=== PATIENT | female | born 1950 ===

== ENCOUNTER 2022-09-14 13:02 | Inpatient (IN) | payer MEDICARE, OTHER ==
[~2022-09-14] VITALS: Ht 160 cm; Wt 86.6 kg
--- NOTE | 2022-09-14 15:21 | NUR ---
SALAZAR NEWMAN CALLED AT 1515 AND NOTIFIED OF PT ARRIVAL
[2022-09-14] MEDS ORDERED: METTREX2.5 PO (15:29)
[2022-09-14] MEDS ORDERED: Coumadin2 MG PO (15:31)
[2022-09-14] MEDS ORDERED: HYDSUL200 PO (15:32)
[2022-09-14] MEDS ORDERED: PREDNISONE PO (15:33)
[2022-09-14] MEDS ORDERED: MYCO250 PO (15:34)
[2022-09-14] MEDS ORDERED: CYCL10 PO (15:35)
[2022-09-14] MEDS ORDERED: TRAM50 PO (15:35)
[2022-09-14] MEDS ORDERED: GABA300 PO ×2 (15:36)
[2022-09-14] MEDS ORDERED: CEPH500 PO (15:37)
[2022-09-14] MEDS ORDERED: WARF2.5 PO (15:38)
--- NOTE | 2022-09-14 16:15 | NUR ---
Pt resting in bed and is significantly somnolant. Pt non verbal and appears painful with repositioning as evidenced by moaning. Spoke with admitting provider Milton, Primary RN Jyoti and discussed case. Called and spoke with Pt's sister in law Liza. Provided update and engaged in therapeutic discussion regarding Pt's code status wishes. Liza reports Pt's wishes are DNR. Liza reports being to Pt's brother who 6 months ago. Pt does not have any other sibblings, or children, or living parents. Liza reports Pt lives with her and Liza's daughter. Placed order for DNR per V/O from hospitalist Milton. Palliative Care will remain available.
[2022-09-14 16:55] LABS: PCO2 Arterial 22.6 mmHg (35-45); PO2 Arterial 95.2 mmHg (80-100)
[2022-09-14 17:07] LABS: Hematocrit 27.4 % (33.0-51.0); Hemoglobin 8.8 g/dL (11.5-16.0); Mean Corpuscular HGB 30.2 pg (26.0-34.0); Mean Corpuscular HGB Conc 32.1 g/dL (31.5-36.5); Mean Corpuscular Volume 94 fL (80-100); Mean Platelet Volume 11.3 fL (9.1-12.4); NRBC ABSOLUTE 0.06 K/mm3 (0.00-0.02); NRBC Auto 0.5 /100 WBC (0.0-0.2); Platelet Count 100 K/mm3 (150-400); RDW Coefficient Variation 16.7 % (11.7-14.2); RDW Standard Deviation 57.6 fL (35.1-46.3); Red Blood Cell Count 2.91 M/mm3 (3.80-5.20); White Blood Cell Count 12.12 K/mm3 (4.00-11.30)
[2022-09-14 17:22] LABS: International Normalized Ratio 3.83; Prothrombin Time Results 36.8 Sec (9.7-11.5)
[2022-09-14 17:38] LABS: CPK Creatine Kinase 231 U/L (26-193); Magnesium, Blood 1.9 mg/dL (1.6-2.4)
[2022-09-14 17:47] LABS: Alanine Aminotransfer (ALT/SGP 56 U/L (12-78); Albumin, Blood 1.4 g/dL (3.4-5.0); Albumin/Globulin Ratio 0.4 (0.8-1.8); Alk Phos 182 U/L (50-136); Anion Gap 13 mmol/L (6-16); Aspartate Aminotrans (AST/SGOT 130 U/L (12-37); Bilirubin, Total 0.8 mg/dL (0.1-1.0); Blood Urea Nitrogen 71 mg/dL (8-24); Bun/Creatinine Ratio 51.1 (12.0-20.0); CO2, Blood 13 mmol/L (21-32); Calcium, Blood 6.3 mg/dL (8.5-10.1); Chloride, Blood 114 mmol/L (98-108); Creatinine, Blood 1.39 mg/dL (0.40-1.00); Globulin, Blood 3.8 g/dL (2.2-4.0); Glomerular Filtration Rate 41 (60-); Glucose, Blood 92 mg/dL (70-99); Potassium, Blood 5.2 mmol/L (3.5-5.5); Sodium, Blood 140 mmol/L (136-145); Total Protein, Blood 5.2 g/dL (6.4-8.2)
[2022-09-14 17:49] LABS: C-Reactive Protein, High Sens. >190.000 mg/L (0.000-3.000)
[2022-09-14 17:57] LABS: BAND PERCENT MAN 49 % (0-8); BASOPHILS PERCENT MAN 0 % (0-2); EOSINOPHILS PERCENT MAN 0 % (0-6); LYMPHOCYTES ABSOLUTE MAN 1.09 K/mm3 (0.84-5.20); LYMPHOCYTES PERCENT MAN 9 % (21-46); MONOCYTES PERCENT MAN 0 % (4-13); MYELOCYTE ABSOLUTE MAN 0.24 K/mm3 (0.00-0.00); MYELOCYTE PERCENT MAN 2 % (0-0); NEUTROPHILS ABSOLUTE MAN 10.78 K/mm3 (1.96-9.15); SEG NEUTROPHILS PERCENT MAN 40 % (41-73); TOTAL CELLS COUNTED 100
[2022-09-14 18:10] LABS: Source, Urine Foley catheter
[2022-09-14 18:13] LABS: Appearance, Urine Cloudy (Clear); Blood, Urine 4+ (Neg); Color, Urine Yellow (P-Yellow); Glucose Qualitative, Urine Neg (Neg); Ketones, Urine 1+ (Neg); Leukocyte Esterase, Urine 1+ (Neg); Nitrite, Urine Neg (Neg); Protein, Urine 2+ (Neg); Urobilinogen, Urine NORM (Normal)
[2022-09-14 18:35] LABS: Bilirubin, Urine 2+ (Neg)
[2022-09-14 18:37] LABS: Yeast/Fungi Urine Few /hpf
[2022-09-14 18:38] LABS: Red Blood Cells, Urine 50-100 /hpf (0-2); Squamous Epithelial Cells Few /hpf (Few)
[2022-09-14 18:39] LABS: Amorphous Light (0-Heavy); Transitional Epithelial Cells Few /hpf (0-Rare)
[2022-09-14 18:40] LABS: Bacteria Mod /hpf
--- NOTE | 2022-09-14 19:25 | NUR ---
PT ARRIVED AT 1500 VIA EMS FROM [place]. NEURO: SOMNOLENT, MOANS AT TIMES. WILL OPEN EYES TO VOICE AND SAY "WHAT" BUT DOES NOT VERBALIZE FURTHER. PT IS REPORTEDLY A/O AT BASELINE. CARDIAC: SR 80-90'S. SBP 90'S-130'S. LEVOPHED TITRATED DOWN FROM 10 TO 4. VASOPRESSIN INFUSING AT 0.04. EKG AND ECHO DONE. RESP: ROOM AIR UPON ARRIVAL, O2 SAT 99%. LUNGS CLEAR WITH DIMINISHED BASES BILATERALLY. CXR DONE. GI: NPO DUE TO ALTERED LOC. BS HYPOACTIVE, BM X1 BROWN AND WATERY. : PADILLA IN PLACE UPON ARRIVAL. D/C'D AND NEW PADILLA PLACED. UA SENT. 20ML CLEAR YELLOW URINE OUT THIS SHIFT. SKIN: SMALL HOLE/PUNCTURE SITE IN PERINEUM. MD VISUALIZED. PICTURES TAKEN OF OTHER SKIN ISSUES. BRUISING ALL OVER BODY ESPECIALLY TO BLE. SEVERAL TOES WITH ESCHAR PRESENT. COCCYX BRUISED, REDDENED WITH PRESSURE AREA PRESENT. IV: CENTRAL LINE TO RIGHT SC, INFUSING. 1/2 NS W/BICARB INFUSING AT 75ML/HR. IV ATB INFUSING. PIVX2, BOTH FLUSH WELL. PT WAS ANOINTED BY NEGRITA SMITH PER FAMILY REQUEST. DNR STATUS CONFIRMED BY MD. SISTER HAILY SPOKE TO ADMITTING PROVIDER AND PALLIATIVE CARE RN VIA PHONE. NIECE UPDATED VIA PHONE BY THIS RN. FAMILY PLANS TO VISIT IN AM, THEY REQUESTED TO BE CALLED IF ANY CHANGES IN PT CONDITION.
--- NOTE | 2022-09-14 19:30 | NUR ---
ASSUMED CARE PT IS A&O X1; VERY DIFFICULT TO ORIENT AND HAVE PT ANSWER QUESTIONS. PT WAS ABLE TO GIVE ME BIRTHDATE/LOCATION, BUT WOULD LOSE FOCUS FREQUENTLY THROUGHOUT QUESTIONING. SPO2 >92% ON RA; MAP >65 ON 4MCG OF LEVOPHED/ 0.04MCG OF VASOPRESSIN. PT HAS A CPOT OF 8.
[2022-09-14 22:41] LABS: Bun/Creatinine Ratio 52.9 (12.0-20.0); Creatinine, Blood 1.36 mg/dL (0.40-1.00); Potassium, Blood 4.6 mmol/L (3.5-5.5)
[2022-09-15 04:17] LABS: Base Excess Venous -12.5 mmol/L; Bicarbonate Venous 15.4 mmol/L (24.0-30.0); PCO2 Venous 24.4 mmHg (38-42); pH Blood Venous 7.34 (7.34-7.37)
[2022-09-15 04:20] LABS: Hematocrit 22.7 % (33.0-51.0); Hemoglobin 7.5 g/dL (11.5-16.0); Mean Corpuscular Volume 91 fL (80-100); Mean Platelet Volume 11.9 fL (9.1-12.4); NRBC ABSOLUTE 0.08 K/mm3 (0.00-0.02); NRBC Auto 0.6 /100 WBC (0.0-0.2); Platelet Count 69 K/mm3 (150-400); RDW Coefficient Variation 16.6 % (11.7-14.2); RDW Standard Deviation 54.9 fL (35.1-46.3); White Blood Cell Count 13.76 K/mm3 (4.00-11.30)
[2022-09-15 04:37] LABS: Magnesium, Blood 1.9 mg/dL (1.6-2.4)
[2022-09-15 04:57] LABS: Albumin, Blood 1.2 g/dL (3.4-5.0); Albumin/Globulin Ratio 0.4 (0.8-1.8); Bilirubin, Total 0.7 mg/dL (0.1-1.0); Bun/Creatinine Ratio 57.5 (12.0-20.0); Calcium, Blood 5.9 mg/dL (8.5-10.1); Creatinine, Blood 1.27 mg/dL (0.40-1.00); Globulin, Blood 3.2 g/dL (2.2-4.0); Potassium, Blood 4.7 mmol/L (3.5-5.5); Total Protein, Blood 4.4 g/dL (6.4-8.2)
--- NOTE | 2022-09-15 05:21 | NUR ---
SHIFT SUMMARY PT IS A&O X1-2. ABLE TO STATE BIRTHDAY/LOCATION. DIFFICULT TO GET PT TO FOCUS AND LOSES FOCUS FREQUENTLY. SPO2 >92% ON RA; MAP >65 ON 4MCG OF LEVOPHED. BICARB RUNNING AT 75MLS/HR. VASOPRESSIN PUT ON SB EARLIER THIS SHIFT. PAIN CONTROL HAS BEEN DIFFICULT W/ FENTANYL MAKING MINIMAL TO NO DIFFERENCE. PT FREQUENTLY WILL MOAN/CRY OUT AND IS RESTLESS. PADILLA PATENT AND DRAINING TO GRAVITY. NO ACUTE CHANGES SINCE THIS AM BESIDES WHAT'S MENTIONED IN THIS NOTE.
--- NOTE | 2022-09-15 05:28 | NUR ---
SHIFT SUMMARY PT IS A&O X1; DOES NOT KNOW WHERE HE IS AT WHEN ASKED T/O NIGHT. ATIVAN TO MANAGE CIWA T/O NIGHT. NO ACUTE CHANGES SINCE ASSUMED CARE NOTE.
[2022-09-15 05:58] LABS: BAND PERCENT MAN 15 % (0-8); BASOPHILS ABSOLUTE MAN 0.96 K/mm3 (0.00-0.23); BASOPHILS PERCENT MAN 7 % (0-2); EOSINOPHILS PERCENT MAN 0 % (0-6); LYMPHOCYTES ABSOLUTE MAN 0.96 K/mm3 (0.84-5.20); LYMPHOCYTES PERCENT MAN 7 % (21-46); METAMYELOCYTE ABSOLUTE MAN 0.27 K/mm3 (0.00-0.00); METAMYELOCYTE PERCENT MAN 2 % (0-0); MONOCYTES PERCENT MAN 0 % (4-13); MYELOCYTE ABSOLUTE MAN 0.13 K/mm3 (0.00-0.00); MYELOCYTE PERCENT MAN 1 % (0-0); NEUTROPHILS ABSOLUTE MAN 11.42 K/mm3 (1.96-9.15); SEG NEUTROPHILS PERCENT MAN 68 % (41-73); TOTAL CELLS COUNTED 100
[2022-09-15 08:20] LABS: Prothrombin Time Results 59.2 Sec (9.7-11.5)
[2022-09-15 08:32] LABS: International Normalized Ratio 6.36
--- NOTE | 2022-09-15 10:28 | NUR ---
Brief supportive visit. Pt resting in bed with her eyes opened. Pt appears to be in pain as evidenced by moaning and movements of her extremities. Pt does not respond verbally to this RN. Spoke with corporation pilot Dana and discussed case. Palliative Care will remain available.
--- NOTE | 2022-09-15 13:42 | NUR ---
DR GARY VEGA AT BEDSIDE TO EVALUATE RECTAL MASS NOTED ON CT SCAN. DIGITAL DISIMPACTION DONE AND EVALUATION OF MASS. PT WITH BRIGHT RED BLOOD FROM RECTUM AFTER DISIMPACTION. PT CLEANED UP, ATTENDS PLACED. PT MED WITH FENTANYL PER EMAR. DR VEGA TO SPEAK WITH FAMILY ABOUT MASS AND PLAN OF CARE.
--- NOTE | 2022-09-15 16:45 | NUR ---
Case Conference Note Spoke with Primary SAHRA Rose and Dr Sharp. Discussed case and concerns. Family may benefit from considering comfort care. Staff has learned that Pt has 2 sisters and sister in law Liza reports not having MPOA but would still like to be Pt's decision maker. Liza is in agreement with comfort care. [place] falls to Pt's blood sibblings for decision making. Called and spoke to each sister Shanice and Jaymie with separate phone calls. Sister Shanice lives in [place] and is the oldest sibbling. Jaymie lives in [facility]. Provided update and discussed recommendations. Educated on comfort care philosophy with V/U made by both sisters. Both sisters agree that Pt's wishes at this stage in her life is to focus on comfort. Both sisters confirm Pt does not have any children or living parents. Offered therapeutic listening and answered questions. Shanice reports Jackelyn is Shanice's daughter. Discussed hospice to consider for D/C plan both are in agreement. Jaymie expresses concerns that Liza and Jackelyn can not care for Pt safely. She report Pt was caring for Liza and Jackelyn prior to hospitalization. Conversation witnessed by PC SAHRA Alonso. Placed comfort care order, comfort care order set, and D/C maintenance medications per V/O from Dr Sharp. Palliative Care will remain available.
--- NOTE | 2022-09-15 17:20 | NUR ---
COMFORT CARE/SHIFT SUMMARY DR TOBAR AND THIS RN HAD EXTENISVE DISCUSSION ABOUT PT CONDITION WITH PT SISTER IN LAW HAILY AT BEDSIDE. HAILY WANTED TO PROCEED WITH COMFORT CARE. BREANNE PALLIATIVE CARE RN CALLED PTS OTHER SISTERS WHO ALSO WANTED TO PROCEED WITH COMFORT CARE. PT TRANSITIONED TO COMFORT CARE AT THIS TIME. LEVOPHED AND OTHER GTT'S DISCONTINUED. PT MED WITH MORPHINE PRN. CENTRAL LINE REMAINS IN PLACE TO MTJ, SALINE LOCKED. PADILLA REMAINS IN PLACE. PT APPEARS TO BE RESTING COMFORTABLY. FAMILY AT BEDSIDE. WILL CONTINUE TO MONITOR AND REPORT OFF TO ONCOMING RN.
--- NOTE | 2022-09-15 19:00 | NUR ---
ASSUMPTION OF CARE PT RESTING IN BED, MEDICATED WITH MORPHINE AND ATROPINE PER EMAR. NIECE AND FAMILY MEMBERS AT BEDSIDE. PLAN FOR PT TO TRANSITION TO MEDICAL FLOOR AND FAMILY UPDATED. LIGHTS DIMMED, MUSIC PLAYING AT THIS TIME.
--- NOTE | 2022-09-15 22:00 | NUR ---
TRANSFER TO MEDICAL FLOOR REPORT GIVEN. BERLIN GANNON NOTIFIED OF MOVE TO ROOM 328 AND SHE STS SHE WILL NOTIFY OTHER FAMILY.
--- NOTE | 2022-09-16 01:01 | NUR ---
CHARGE NURSE NOTE WAS NOTIFIED OF PT EXPIRATION AT [address] KULKARNI NOTIFIED. FABRICATION SPECIALIST NOTIFIED. DONOR LINE CALLED, REVIEWED AND WAS DECIDED NOT DONOR ACCEPTABLE. FAMILY REQUESTED THAT HOSPITAL CALL [facility] RE FOLLOW THROUGH. FABRICATION SPECIALIST NOTIFIED AND [facility] DIRECTORS WAS GIVEN. CALL PLACED FOR FOLLOW THROUGH.
--- NOTE | 2022-09-16 01:13 | NUR ---
HOME NOTIFICATION BREANNE MARS NOTIFIED AT [facility] DIRECTORS, WILL COME TO [employer] INSPECTOR BODY
--- NOTE | 2022-09-16 01:45 | NUR ---
PT'S NEICE, HAILY, WAS NOTIFIED BY PHONE OF PT'S PASSING. PER HER REQUEST PALLIATIVE SENIOR NP HOME WAS NOTIFIED. HAILY WAS NOTIFIED THAT [facility] DIRECTORS WOULD BE RECEIVING PT AND FAMILY CAN CONTACT THEM FOR ARRANGEMENTS.
== END 2022-09-16 00:10 | DRG 871 ==
LOC: ICUE 13:02 → MEDS 09-15 21:59
PROVIDERS: Nurse Practitioner Acute Care; Student in an Organized Health Care Education/Training Program; ADMIT Internal Medicine
PROC: 3E043XZ Introduction of Vasopressor into Central Vein, Percutaneous Approach (ICD-10-PCS; principal; 2022-09-14)
DX: A41.9 Sepsis, unspecified organism (principal); G92.8 Other toxic encephalopathy; I21.4 Non-ST elevation (NSTEMI) myocardial infarction; R65.21 Severe sepsis with septic shock; C20 Malignant neoplasm of rectum; N17.9 Acute kidney failure, unspecified; N39.0 Urinary tract infection, site not specified; L03.115 Cellulitis of right lower limb; Z66 Do not resuscitate; M06.9 Rheumatoid arthritis, unspecified; D69.6 Thrombocytopenia, unspecified; G60.0 Hereditary motor and sensory neuropathy; M79.7 Fibromyalgia; M32.9 Systemic lupus erythematosus, unspecified; E87.5 Hyperkalemia; Z86.718 Personal history of other venous thrombosis and embolism; Z79.01 Long term (current) use of anticoagulants; Z51.5 Encounter for palliative care
CPT/HCPCS: 36415; 36600; 51702; 71045; 74177; 80048; 80053; 81001; 82550; 82803; 83605; 83735; 83880; 84145; 84484; 85025; 85610; 85651; 85730; 86141; 87040; 87086; 87106; 93005; 93010; 93306; A9270; J0610; J0692; J1170; J2270; J3010; J3370; J7050; J7060; Q9967